=== PATIENT | female | born 1970 | race Hispanic/Latino ===

== ENCOUNTER → 2017-03-09 | Outpatient (CLI) | payer OTHER ==
[~2017-03-09] MED LIST: ASPI81TA85 PO; ATOR1TAB21 PO; BACL10TA2 PO; GABA600T PO; JANU50TA25 PO; LISI-542 PO; MAGN400T5 PO; MEDR1VL IM; MELO15TA4 PO; NORT25CA2 PO; OMEP20CA3 PO; RIBO100C PO; SIME80TA PO
--- NOTE | 2017-03-09 10:14 | REP ---
NUCLEAR MEDICINE GASTRIC EMPTYING STUDY: 03/09/2017 CLINICAL HISTORY: Postprandial rigidity constipation, abdominal cramping, bloating, nausea, early satiety decreased appetite. 10-pound weight loss in a month. Type 1 diabetic. The patient received 0.95 mCi technetium 99m sulfur colloid in two scrambled eggs with 6 ounces of water. Sequential anterior and posterior imaging for 90 minutes at 2-minute intervals performed. Region of interest drawn around the stomach with gastric emptying calculated by a semiautomated method. At 90 minutes, 35% of activity is empty. The normal t-1/2 is 121 minutes. Therefore, this is a prolonged gastric emptying time. IMPRESSION: 1. Gastroparesis is confirmed with a t-1/2 of 121 minutes. At the end of 90 minutes of observation only 35% of activity was empty. Mild degree of gastroparesis. Signed by Gold Rodgers MD 03/10/2017 05:51 P
== END ==
LOC: M RAD 07:34
DX: K59.04 Chronic idiopathic constipation (principal); R68.82 Decreased libido
CPT/HCPCS: 78264; A9541

== ENCOUNTER → 2017-04-27 | Outpatient (CLI) | payer OTHER | LOC: M RAD 10:11 | DX: Z12.4 Encounter for screening for malignant neoplasm of cervix (principal); Z12.31 Encounter for screening mammogram for malignant neoplasm of breast | CPT/HCPCS: 77067 ==